=== PATIENT | female | born 1945 | race Caucasian/White ===

== ENCOUNTER 2018-05-02 06:10 | Day surgery (SDC) | payer BC, MEDICARE ==
[2018-05-02] MEDS ORDERED: ACETAZOLAMIDE 250 MG PO ONE (06:18)
[2018-05-02] MEDS: PHENYLEPHRINE HCL 10% OPHTHAL SOL ONE ×2 (06:50→07:05)
[2018-05-02] MEDS: TETRACAINE HCL 0.5 % 1 DROP SOL ONE ×3 (06:50→08:07)
[2018-05-02] MEDS: CYCLOPENTOLATE 1% SOL ONE ×2 (06:50→07:04)
[2018-05-02] MEDS: KETOROLAC 0.5% OPTH 60 DROP SOL ONE ×2 (06:51→07:05)
[2018-05-02 07:06] VITALS: RESP 18
[2018-05-02] MEDS ORDERED: FENTANYL 100MCG/2ML SOL ONE (07:45)
[2018-05-02] MEDS ORDERED: MIDAZOLAM 2 MG/2 ML SOL ONE (07:45)
[2018-05-02] MEDS ORDERED: POVIDONE IODINE 5% SOL ONE (08:02)
[2018-05-02] MEDS ORDERED: BSS 500 ML 500 ML IR ONE (08:02)
[2018-05-02] MEDS ORDERED: LIDOCAINE HCL 1% MPF 30 SOL ONE (08:02)
[2018-05-02] MEDS: IMPRIMIS ONE ×2 (08:13→08:22)
[2018-05-02 08:39] VITALS: BP 112/70; PULSE 66; TEMP 96.7; O2SAT 96
== END 2018-05-02 08:53 | disposition home or self-care (01) | DRG 125 ==
LOC: SURG 06:10
PROVIDERS: ATTEND Ophthalmology
DX: H25.89 Other age-related cataract (principal)
CPT/HCPCS: J2250; J3010; A9270-GY; J2001